=== PATIENT | male | born 1965 | race Caucasian/White ===

== ENCOUNTER → 2021-01-03 | Outpatient (CLI) | payer OTHER ==
[~2021-01-03] MED LIST: ASPIRIN 325MG325 MG PO; ATORVASTATIN CA20 MG PO; GLUCOPHAGE500 MG PO; LOPRESSOR 25 MG25 MG PO; NITROGLYCERIN0.4 MG SL; PREVACID30 MG PO
== END ==
LOC: EXRD 13:25
DX: Z87.39 Personal history of other diseases of the musculoskeletal system and connective tissue (principal); M19.042 Primary osteoarthritis, left hand; M19.041 Primary osteoarthritis, right hand
CPT/HCPCS: 73130; 73630